=== PATIENT | male | born 1965 | race Caucasian/White ===

== ENCOUNTER 2024-09-10 09:22 | Outpatient (AMB) | payer OTHER, SELFPAY ==
[2024-09-10 09:59] VITALS: BP 136/90; PULSE 65; TEMP 37.1; O2SAT 98; BMI 24.0
--- NOTE | 2024-09-10 09:59 | AM.OFFWIN_ITS ---
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 Cheek/jaw improved with OTC decongestant and tylenol but now he has throbbing pain in forehead No fever, chills, cough, CP or SOB PFSH Social History Patient Tobacco Use Status: Never used Tobacco Review of Systems Const Denies chills, Denies fever(s) and Reports headache(s) Eyes Denies blurry vision ENT Denies vertigo, Denies dizziness, Reports headache(s), Reports hoarseness, Reports mouth pain (teeth), Reports sinus pain, Reports sinus pressure, Denies sore throat and Denies throat swelling Card Denies chest pain, Denies syncope and Denies dyspnea Resp Denies chest congestion, Denies cough and Denies dyspnea Skin/Breast Denies rash Neuro Denies vertigo, Denies dizziness, Denies syncope and Reports headache(s) Aller/Immun Denies throat swelling Physical Exam Vital Signs: Last Vital Signs Temp 98.8 F 09/10/24 09:59 Pulse 65 09/10/24 09:59 BP 136/90 H 09/10/24 09:59 Pulse Ox 98 09/10/24 09:59 Oxygen Delivery Method Room Air 09/10/24 09:59 BMI result Body Mass Index 24.0 General: Non-toxic, NAD. Speaking full sentences. Skin: Warm dry throughout Eye: EOMI HENT: Airway patent. Uvula midline. No pharyngeal erythema or edema. 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 Bilateral canals clear. + fluid behind L TM but TM non-erythematous, non- bulging. No TM perforation or hemotympanum noted. No mastoid tenderness + edematous nasal turbinants + tenderness to palpation frontal sinuses. No dental trauma, abscess, sublingual edema/mass or gingival abnormality noted. No trismus Respiratory: CTA bilaterally. No wheezes, rales or rhonchi Cardiac: RRR. No murmur MSK: Full ROM extremities. Neurology: Alert. No aphasia or facial droop. Gait without abnormality Psych: Good mood and affect Assessment & Plan Assessment & Plan (1) Sinusitis: Code(s): J32.9 - Chronic sinusitis, unspecified Qualifiers: Sinusitis location: frontal Chronicity: acute Recurrence: non- recurrent Qualified Code(s): J01.10 - Acute frontal sinusitis, unspecified Plan: Patient seen and evaluated. Augmentin Tylenol/Motrin F.U with a PCP Patient gave verbal understanding and had no additional questions or concerns at time of discharge All questions answered Medications: New amoxicillin-pot clavulanate 875-125 mg 1 tab PO BID 20 tabs 0RF Coding Level of Care Code New Pt Level 3 (90449) Diagnoses Acute non-recurrent frontal sinusitis J01.10 Sinusitis location: frontal Chronicity: acute Recurrence: non-recurrent
== END 2024-09-10 10:20 | disposition home or self-care (01) ==
PROVIDERS: Visit Provider Physician Assistant
DX: J01.10 Acute frontal sinusitis, unspecified (principal)

== ENCOUNTER → 2024-09-10 09:22 | Outpatient (BNVA) | payer OTHER, SELFPAY | PROVIDERS: Visit Provider Physician Assistant ==